=== PATIENT | male | born 2005 | race Asian ===

== ENCOUNTER 2024-01-04 01:52 | Emergency (ER) | payer OTHER, SELFPAY ==
[2024-01-04] VITALS (10 sets, daily range): BP systolic 82–113; BP diastolic 27–63; PULSE 71–112; RESP 19–23; TEMP 36.1–36.9; O2SAT 96–100; BMI 21.8
--- NOTE | 2024-01-04 02:00 | EX.ED.SAOD ---
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 He denies using any drugs. Vomiting and lethargic denies dyspnea. PFSH PFSH Medical History unable to obtain no medical history Home Medications ?Medication ?Instructions ?Recorded ?Last Taken ?Type NK 01/04/24 Unknown History Allergy/AdvReac Type Severity Reaction Status Date / Time No Known Allergies Allergy Verified 01/04/24 05:32 Family History unable to obtain Surgical History unable to obtain Social History Smoking Status: Unknown if ever smoked ROS ROS ED Review of Systems ROS Unobtainable: due to mental status Eyes Eyes: Reports blurry vision Respiratory/Chest Respiratory/Chest: Denies dyspnea Gastrointestinal Gastrointestinal: Reports nausea and vomiting EXAM Physical Exam Const Vital Signs: 01/04/24 01:52 01/04/24 01:53 01/04/24 02:32 Temperature 97 F L 97 F L Temperature Source Temporal Temporal Pulse Rate 112 H 112 H Respiratory Rate 19 H 19 H Respiratory Effort Respiratory Pattern Blood Pressure 113/63 113/63 100/38 L Blood Pressure Mean 79 79 58 Blood Pressure Source Monitor Blood Pressure Position Semi-Fowlers Blood Pressure Location Right Arm Pulse Ox 97 97 Oxygen Delivery Method Room Air Room Air 01/04/24 02:45 01/04/24 03:00 01/04/24 03:42 Temperature Temperature Source Pulse Rate 81 Respiratory Rate 22 H Respiratory Effort Normal Non-Labored Respiratory Pattern Normal Blood Pressure 109/42 L 93/27 L Blood Pressure Mean 64 49 Blood Pressure Source Blood Pressure Position Blood Pressure Location Pulse Ox 96 Oxygen Delivery Method Room Air 01/04/24 04:00 01/04/24 05:00 Temperature Temperature Source Pulse Rate 99 71 Respiratory Rate 20 H 20 H Respiratory Effort Respiratory Pattern Blood Pressure 105/41 L 94/38 L Blood Pressure Mean 62 56 Blood Pressure Source Blood Pressure Position Blood Pressure Location Pulse Ox 100 99 Oxygen Delivery Method Room Air Room Air Positive well nourished and well developed Constitutional Narrative: Lethargic. Alerts to voice. Grossly intoxicated. General Appearance ED: well developed HEENT Reports moist mucous membranes normocephalic and atraumatic Eyes PERRL and EOMs intact bilaterally Neck full ROM and supple Resp normal respiratory effort and clear to auscultation bilaterally Cardio regular rate, regular rhythm and no murmurs GI non-tender and non-distended Auscultation: normoactive bowel sounds Palpation: soft Back/Spine no CVA tenderness General Back: other FROM Extremity normal to inspection General Extremety ED: Negative for edema, pulses abnormal or tenderness General Extremity: Negative for edema or pulses abnormal Neuro CN's II-XII intact bilaterally and no sensory deficits noted Neuro Narrative: Intoxicated moving all 4 extremities. Amaya Coma Scale: document GCS findings To Voice Obeys Commands Oriented 14 Sensorium / Orientation: lethargic Motor Exam: strength 5/5 throughout Skin no rashes or lesions noted and no wounds MDM MDM MDM Narrative Medical decision making narrative: Later patient's friend arrived, states that he drank a lot of vodka, then did some shots of fireball whiskey, then drink a lot of beer, and then some sake. He then vomited for about an hour straight before they called EMS. Patient was given IV fluids and Zofran, during the first liter his blood pressure was a little soft, some of his MAP measurements were a little below 60, and this continued until the end of the first liter so he was given a second. His heart rate improved. He remained somnolent and his pressure soft, 105/41 after the second liter, although it was 4 AM. Therefore, his blood was obtained when he arrived and so I ran it for alcohol and chemistries, it showed an alcohol level of 278 consistent with the patient's degree of intoxication, and a potassium of 3.0. Therefore while we had him here we ran more gentle IV fluids at 150 an hour along with 10 mill equivalents of potassium chloride, he may need to continue to be observed into the morning shift until he is awake enough to walk home safely. On several reevaluations, he is easily arousable to either voice or light physical stimulation. Discussed w/ AM EDP at 0700 shift change for continued observation. History & Record Review Discussion w/independent historian: EMS personnel, Patient and Friend Lab Data Attestation: I reviewed the patient's lab results. Labs: Laboratory Results - last 24 hr 01/04/24 01:57 Sodium 140 Potassium 3.0 L Chloride 108 H Carbon Dioxide 24.0 Anion Gap 8 BUN 14 Creatinine 0.93 Estim Creat Clear Calc 120.07 Est GFR (MDRD) Af Amer 132 Est GFR (MDRD) Non-Af 109 BUN/Creatinine Ratio 15.0 Glucose 130 H Calcium 8.8 Ethyl Alcohol 278.0 Discharge Plan Triage Chief Complaint: ETOH Intox ED Provider: Dalton Schroeder Dx/Rx/DC Orders Clinical Impression: Alcohol intoxication, Hypokalemia due to excessive gastrointestinal loss of potassium Instructions: ED Alcohol Intoxication Prescriptions: No Action NK Referrals: [place],[facility] [Group of Physicians] - As Needed Print Language: [place]
[2024-01-04] MEDS: 0.9% Normal Saline (1000mL) 1,000 ML 999 ML IV ×2 (02:05→03:15)
[2024-01-04] MEDS: Ondansetron 4 MG/2 ML Vial IV (02:05)
--- NOTE | 2024-01-04 02:16 | ED.RN ---
Pt unable to answer questions at this time due to alcohol intoxication. He is not responding.
[2024-01-04] MEDS: 0.9% Normal Saline (1000mL) 1,000 ML 150 ML IV (04:10)
[2024-01-04 04:37] LABS: Anion Gap 8 (5-15); BUN 14 mg/dL (7-18); Calcium,Total 8.8 mg/dL (8.5-10.1); Chloride 108 mmol/L (98-107); Creatinine, Serum 0.93 mg/dL (0.70-1.30); EST Glomerular Filtration Rate 109 mL/min (>60); Est Glom Filt Rate - Afr Amer 132 mL/min (>60); Estimated Creatinine Clearance 120.07 ml/min; Glucose 130 mg/dL (74-106); Sodium Level 140 mmol/L (136-145)
[2024-01-04] MEDS: Potassium Chloride 10mEq/100mL 10 MEQ/100 ML IV.SOLN. 100 MEQ IV BOLUS (04:58)
== END 2024-01-04 08:06 | disposition home or self-care (01) ==
LOC: ED 07:53
PROVIDERS: Emergency Provider Emergency Medicine; Visit Provider Emergency Medicine
DX: F10.129 Alcohol abuse with intoxication, unspecified (principal); E87.6 Hypokalemia; Y90.8 Blood alcohol level of 240 mg/100 ml or more
CPT/HCPCS: 80048; 82077; 96365; 96366; 96375; 96376; 99284; J7030; A4216; J2405

== ENCOUNTER 2024-03-08 15:05 | Emergency (ER) | payer OTHER, SELFPAY ==
[2024-03-08 15:05] VITALS: BP 128/73; PULSE 74; RESP 15; TEMP 36.3; O2SAT 100; BMI 20.5
[2024-03-08 15:07] VITALS: BP 128/73; PULSE 74; RESP 15; TEMP 36.3; O2SAT 100
[2024-03-08 15:40] LABS: Absolute Lymphocyte Count 1.73 X10^3/uL (0.83-4.51); Absolute Neutrophil Count 6.8 X10^3/uL (2.0-7.7); Basophil# 0.04 X10^3/uL; Basophil% 0.4 % (0-1); Eosinophil# 0.04 X10^3/uL; Eosinophils% 0.4 % (0-5); Hematocrit 46.1 % (40-54); Lymphocyte # 1.73 X10^3/ul (0.83-4.51); Lymphocyte % 18.8 % (19-41); Mean Corp Hgb Conc 32.5 g/dL (32-36); Mean Corpuscular Hgb 29.4 pg (27.0-32.0); Mean Corpuscular Volume 90.4 fL (80-94); Mean Platelet Vol. 8.7 fl (6.2-12.0); Monocyte# 0.64 X10^3/uL; Monocyte% 6.9 % (0-10); NRBC Flagged by Analyzer 0 % (0-5); Neutrophil # 6.75 X10^3/uL (2.7-7.7); Neutrophil % 73.3 % (47-70); Platelet Count 285 K/mm3 (150-450); RBC Distribution Width CV 12.3 % (11.6-14.6); RBC Distribution Width SD 40.5 fl (35.1-43.9); White Blood Count 9.2 K/mm3 (4.4-11.0)
[2024-03-08 15:53] LABS: ALB/GLOB Ratio 1.1 RATIO (0.9-2.4); AST(SGOT) 16 U/L (15-37); Alanine Aminotransfer ALT/SGPT 20 U/L (16-61); Albumin, Serum 3.9 g/dL (3.2-5.0); Alkaline Phosphatase 74 U/L (45-117); Anion Gap 6 (5-15); BUN 18 mg/dL (7-18); BUN/Creat Ratio 17.6 RATIO (10-20); Calcium,Total 9.4 mg/dL (8.5-10.1); Chloride 105 mmol/L (98-107); Creatinine, Serum 1.02 mg/dL (0.70-1.30); EST Glomerular Filtration Rate 98 mL/min (>60); Est Glom Filt Rate - Afr Amer 119 mL/min (>60); Estimated Creatinine Clearance 103.32 ml/min; Globulin 3.5 g/dL (2.2-4.2); Glucose 76 mg/dL (74-106); Lipase 29 U/L (13-75); Potassium 3.9 mmol/L (3.5-5.1); Protein, Total 7.4 g/dL (6.4-8.2); Sodium Level 139 mmol/L (136-145)
[2024-03-08] MEDS: Naproxen 500 MG Tablet PO (16:35)
[2024-03-08 16:39] VITALS: BP 128/73; PULSE 74; RESP 15; TEMP 36.3; O2SAT 100
== END 2024-03-08 16:39 | disposition home or self-care (01) ==
PROVIDERS: Emergency Provider Emergency Medicine; Visit Provider Emergency Medicine
DX: M94.0 Chondrocostal junction syndrome [Tietze] (principal); Z87.891 Personal history of nicotine dependence
CPT/HCPCS: 71046; 80053; 83690; 85025; 99283; A4216